=== PATIENT | female | born 1980 | race Caucasian/White ===

== ENCOUNTER 2025-05-25 03:00 | Emergency (ER) | payer OTHER, SELFPAY ==
[2025-05-25 03:02] VITALS: BP 133/88
[2025-05-25 03:45] LABS: Hematocrit 41.1 % (37.0-47.0); Hemoglobin 13.8 g/dL (12.0-16.0); Mean Corp Hgb Conc. 33.6 g/dL (33.0-37.0); Mean Corpuscular Volume 91.3 fL (81.0-99.0); Nucleated Red Blood Cells % 0 %; Platelet Count 288 10^3/uL (130-400); Red Cell Dist. Width 12.8 % (11.5-14.5)
--- NOTE | 2025-05-25 03:54 | ED.GENMED ---
History of Present Illness
General
Chief Complaint: Abdominal Pain
Source: patient
Exam Limitations: none
Time Seen by Provider: 05/25/25 03:10
Nursing documentation reviewed up to this point in time: agreed with
History of Present Illness
History of Present Illness:
45-year-old female past medical history of hyperlipidemia presenting to the emergency department today with concerns of severe right upper quadrant abdominal pain that started abruptly roughly half an hour prior to arrival. Denies any specific
vomiting no chest pain or shortness of breath. Denies similar symptoms in the past.
Review of Systems
Review of Systems
Allergies reviewed?: Yes
All Other Systems: ROS reviewed and negative except as documented in HPI and ROS
Phy Exam
Physical Exam
Physical Exam:
GENERAL: Alert , in no apparent distress
EYE: pupils equal and reactive
NECK: Supple, no significant adenopathy.
ENT: o/p clr, mmm.
CARDIAC: Regular rate and rhythm .
LUNGS: Clear breath sounds bilaterally, no acute respiratory distress, no wheezes/rales/rhonchi
ABDOMEN: Soft, without focal tenderness, no r/g, no cvat
NEUROLOGICAL: Alert and oriented, no focal neuro deficits
SKIN: Warm and dry, skin intact.
MUSCULOSKELETAL: No edema, well perfused.
PSYCH: Normal and appropriate interaction.
Course
Orders/Labs/Results
Orders:
Orders
05/25/25 03:21
CT Abd/Pel (IV only)-DH only Urgent
Comment:
Reason For Exam: right sided abd pain flank pain, severe
05/25/25 03:26
Beta Hcg Serum Qualitative Screen [HCG, Serum Qualitative Screen] Urgent
Complete Blood Count/With Diff Urgent
Comprehensive Metabolic Panel Urgent
Lipase Urgent
05/25/25 03:28
Test Result ONCE
05/25/25 03:52
Urinalysis Reflex To Culture Urgent
Date Specimen was Collected: 05/25/25
Time Specimen was Collected: 03:27
Urine Microscopic Reflex Cult Urgent
Urine Culture Urgent
JHONATAN Source: U
Specimen Description:
Date Specimen was Collected: 05/25/25
Time Specimen was Collected: 03:27
05/25/25 03:55
EKG [Electrocardiogram (*1)] Urgent
Reason for Study: Abdominal Pain
EKG- Treatment ONCE
Abnormal Lab Results
05/25/25 05/25/25
03:26 03:52
Chloride 108 H mmol/L
(98-107)
Glucose 135 H mg/dl
(70-99)
Calcium 10.3 H mg/dl
(8.4-10.2)
AST 109 H U/L
(14-36)
ALT 64 H U/L
(0-35)
Leukocyte Esterase Rfl 3+ A
(Negative)
Urine Bacteria (Reflex) Few A
(Negative)
Urine Albumin (Reflex) 1+ A
(Neg - Trace)
05/25/25 03:26
05/25/25 03:26
Vital Signs
Initial and Last Documented VS:
Initial Vital Signs
Temp Pulse Resp BP Pulse Ox
97.5 F 61 20 133/88 100
05/25/25 03:02 05/25/25 03:02 05/25/25 03:02 05/25/25 03:02 05/25/25 03:02
Last Documented Vital Signs
Temp Pulse Resp BP Pulse Ox
97.5 F 61 20 133/88 100
05/25/25 03:02 05/25/25 03:02 05/25/25 03:02 05/25/25 03:02 05/25/25 03:55
MDM/Problems Addressed
MDM/Problems Addressed:
45-year-old female presenting with severe abdominal pain mainly to the right side of the abdomen mainly right upper quadrant. Occurred abruptly out of nowhere at home manage to the right upper quadrant no associated vomiting no associate additional
GI symptoms or chest pain or shortness of breath. Here symptoms fully resolved just prior to CT scan. Patient in no distress for multiple hours here. CT scan does not show emergent findings at this point patient stable for close outpatient
follow-up. Return precautions given.
*Pulse Oximetry
SaO2: 100
Oxygen Mode of Delivery: Room air
Patient hypoxic: no (100)
*Critical Care Note
Total Time (30-74mins, 75-104mins- exclusive of procedures): Not Applicable
ED Attending Note
-
Portions of this chart may have been created with voice recognition software.� Occasional wrong word or��sound alike� substitutions may have occurred due to the inherent limitations of voice recognition software.
Discharge Plan
Departure
Patient Disposition: Home (Routine Discharge)
Date of Disposition: 05/25/25
Time of Disposition: 05:18
Patient with high blood pressure during this ER visit?: No
Condition: Good
Covid-19: Not Applicable
Discharge Problem:
Abdominal pain
Instructions: Abdominal Pain
Activity Restrictions/Additional Instructions:
You came to the emergency department today with concerns of abdominal pain. Here you have a reassuring assessment. Please follow closely as an outpatient with your primary care doctor. Return for any worsening, new or concerning symptoms.
Interventions
Interventions:
VI-Kkyjjn-Pfcwfuvjfo Assessment Last Done: 05/25/25 04:14
Discharge Date and Time
Print Language: SAMI
[2025-05-25 03:56] LABS: HCG, Serum Qualitative Screen Negative
[2025-05-25 04:09] LABS: AST (SGOT) 109 U/L (14-36); Albumin 4.8 g/dl (3.5-5.0); Alkaline Phosphatase 70 U/L (38-126); Blood Urea Nitrogen 17 mg/dl (7-17); Calcium 10.3 mg/dl (8.4-10.2); Carbon Dioxide 27 mmol/L (22-30); Chloride 108 mmol/L (98-107); Glucose 135 mg/dl (70-99); Lipase 182 U/L (23-300); Potassium 3.9 mmol/L (3.5-5.1); Sodium 142 mmol/L (135-145); Total Protein 7.4 g/dl (6.3-8.2); eGFR > 60.00
[2025-05-25 04:10] LABS: Urine Character Clear (Clear)
[2025-05-25 04:13] VITALS: BMI 34.6
[2025-05-25 04:26] LABS: Urine Red Blood Cell 0-2 /HPF (0-2)
[2025-05-25 04:43] LABS: ALT (SGPT) 64 U/L (0-35)
[2025-05-25 05:50] VITALS: BP 119/64
== END 2025-05-25 05:52 | disposition home or self-care (01) ==
LOC: EMR 03:00
PROVIDERS: Physician Assistant; EMERGENCY PHYSICIAN Student in an Organized Health Care Education/Training Program; FAMILY PHYSICIAN Family Medicine
DX: R10.11 Right upper quadrant pain (principal); E78.5 Hyperlipidemia, unspecified
CPT/HCPCS: 99284; 74177; 80053; 81003; 81015; 83690; 84703; 85025; 87086; 93005; Q9967